=== PATIENT | female | born 1990 | race Two or more races ===

== ENCOUNTER 2020-01-12 09:37 | Outpatient (CLI) | payer OTHER | END 2020-01-12 09:49 | disposition home or self-care (01) | LOC: RX STUDY 09:37 | DX: N97.1 Female infertility of tubal origin (principal) ==

== ENCOUNTER 2023-01-24 06:28 | Day surgery (SDC) | payer OTHER ==
[~2023-01-24] VITALS: Ht 160 cm; Wt 69.9 kg
[2023-01-24] MEDS ORDERED: TRAM1TAB98 PO (15:02)
[2023-01-24] MEDS ORDERED: IBU600 MG PO (15:02)
== END 2023-01-24 19:45 | disposition home or self-care (01) ==
LOC: CIR.AMB 06:28
PROVIDERS: ATTEND Obstetrics & Gynecology
DX: N83.291 Other ovarian cyst, right side (principal); N80.101 Endometriosis of right ovary, unspecified depth; N83.01 Follicular cyst of right ovary; R10.2 Pelvic and perineal pain; Z20.822 Contact with and (suspected) exposure to COVID-19; F12.90 Cannabis use, unspecified, uncomplicated